=== PATIENT | female | born 1955 | race Two or more races ===

== ENCOUNTER 2020-09-20 06:37 | Day surgery (SDC) | payer OTHER | END 2020-09-20 12:35 | disposition home or self-care (01) | LOC: CIR.AMB 06:37 → MRI 11:30 → CIR.AMB 12:35 | PROVIDERS: ATTEND Orthopaedic Surgery Hand Surgery | DX: G56.02 Carpal tunnel syndrome, left upper limb (principal); M65.332 Trigger finger, left middle finger; Z20.828 Contact with and (suspected) exposure to other viral communicable diseases ==